=== PATIENT | female | born 1960 | race Caucasian/White ===

== ENCOUNTER 2017-08-31 08:28 | Day surgery (SDC) | payer MEDICARE ==
--- NOTE | 2017-08-30 17:20 | History and Physical Report ---
DATE: 08/30/2017. CHIEF COMPLAINT AND HISTORY OF CHIEF COMPLAINT: This is a patient with a history of an intractable lumbar radiculitis. She had a spinal cord stimulator trial on 08/08/2017 which 75 to 85 percent pain control. Due to the failure of all therapy and the success of the trial, the patient presents today for implantation of a permanent system. PAST MEDICAL HISTORY: Hypothyroidism, asthmatic bronchitis, reflux esophagitis , renal disease. PAST SURGICAL HISTORY: Not available. MEDICATIONS ON ADMISSION: To be provided. ALLERGIES: Environmental and Bactrim. SOCIAL HISTORY: Noncontributory. FAMILY HISTORY: Thyroid disease, asthma, coronary artery disease, hypertension , cancer. PHYSICAL EXAMINATION: General: Height and weight are not known. Vital Signs: Unavailable. HEENT: Within normal limits. Lungs: Clear. Heart: Regular rate and rhythm. Abdomen: Nontender. Musculoskeletal: Examination of the musculoskeletal system shows diffuse tenderness throughout the lumbar spine. Range of motion does produce pain to the low back and hip area. There is a lower extremity component across an L4 and L5 pattern into both legs. Motor and sensory field evaluation shows no specific dermatomal distribution abnormalities. Motor strength is intact. Ambulation: No assistive device utilized. Neurologic: Cranial nerves are intact. IMPRESSION: LUMBAR RADICULITIS, ICD-10 CODE M54.16 AND M54.17. PLAN: The patient is here for implantation of a permanent spinal cord stimulator due to the failure of all other therapies and the success of the trial. The procedure will be considered outpatient although an overnight stay will be evaluated. The potential risks, side effects, and complications have all been carefully reviewed and discussed including spinal cord injury, nerve root injury, dural puncture, and spinal headache. The patient understands and has consented. JOB NUMBER: [id number] cc: Dee Johnston
[~2017-08-31 08:28] MED LIST: ACETAMINOPHEN 1,000 MG/100 ML BTL IV ONE; CEFAZOLIN 2 Gram 2 GM/50 ML BAG IVPB ONE; FAMOTIDINE 20MG TABLET PO ONE; MECLIZINE 25 MG TABLET PO ONE; METOCLOPRAMIDE 10 MG TABLET PO ONE
[2017-08-31] MEDS ORDERED: CEFAZOLIN 1G VIAL IM ONE (08:29)
[2017-08-31] MEDS ORDERED: LIDOCAINE 2% MDV (20MG/ML) 20ML VIAL IV ONE (08:29)
[2017-08-31] MEDS ORDERED: LIDOCAINE 1% W/EPI 1:200,000 MPF 30ML SQ ONE (08:29)
[2017-08-31] MEDS ORDERED: BUPIVACAINE 0.5% W/EPI MPF 30 ML VIAL IVP ONE (08:29)
[2017-08-31] MEDS ORDERED: PROPOFOL 10 MG/ML VIAL IV ONE (08:29)
[2017-08-31] MEDS ORDERED: HYDROMORPHONE HCL 2 MG/ML VIAL IV ONE (08:29)
[2017-08-31] MEDS ORDERED: METOCLOPRAMIDE 10 MG TABLET PO PRN (12:45)
[2017-08-31] MEDS ORDERED: OXYCODONE/APAP 10MG-325MG TABLET PO PRN ×2 (12:45)
[2017-08-31] MEDS ORDERED: HYDROCODONE/APAP 7.5/325MG TABLET PO PRN ×2 (12:45)
[2017-08-31] MEDS ORDERED: HYDROMORPHONE HCL 1 MG/ML SYRINGE IM PRN (12:45)
[2017-08-31] MEDS ORDERED: AL HYDROX/MAG HYDROX 30ML UD PO PRN (12:45)
[2017-08-31] MEDS ORDERED: DIPHENHYDRAMINE HCL 25 MG CAPSULE PO PRN ×2 (12:45)
[2017-08-31] MEDS ORDERED: TEMAZEPAM 15 MG CAPSULE PO PRN ×2 (12:45)
[2017-08-31] MEDS ORDERED: DIPHENHYDRAMINE HCL IV 50 MG/ML VIAL IVP PRN ×2 (12:45)
[2017-08-31] MEDS ORDERED: ACETAMINOPHEN 325 MG TAB PO PRN ×2 (12:45)
[2017-08-31] MEDS ORDERED: METOCLOPRAMIDE HCL 10 MG/2 ML VIAL IVP PRN (12:45)
[2017-08-31] MEDS ORDERED: SENNOSIDES/DOCUSATE SODIUM UD CAPSULE PO PRN ×2 (12:45)
[2017-08-31] MEDS ORDERED: HYDROMORPHONE HCL 2 MG/ML VIAL IM PRN (12:45)
--- NOTE | 2017-08-31 15:39 | Operative Note - Ferro ---
DATE OF SURGERY: 08/31/17 PREOPERATIVE DIAGNOSIS: LUMBAR RADICULITIS, ICD-10 CODE = M54.16 AND M54.17. OPERATION: 1. FLUOROSCOPICALLY-GUIDED LEFT EPIDURAL ACCESS T12-L1. PLACEMENT OF SPINAL CORD STIMULATOR LEAD 1, A [employer] INFINION 16 WITH 16 ELECTRODES POSITIONED LEFT T6. 2. FLUOROSCOPICALLY-GUIDED EPIDURAL ACCESS LEFT, T11-12. PLACEMENT OF SPINAL CORD STIMULATOR LEAD 2, A [employer] INF[employer] 16 WITH 16 ELECTRODES POSITIONED RIGHT, T6. 3. COMPLEX PROGRAMMING OF LEAD 1 OVER 20 MINUTES FOLLOWED BY COMPLEX PROGRAMMING OF LEAD 2 OVER 20 MINUTES. 4. INCISION, SUBCUTANEOUS DISSECTION, AND ANCHORING LEAD 1 AND LEAD 2 TO SUPRASPINOUS FASCIA USING A [employer] LOCKING ANCHOR FOR EACH. 5. INCISION, SUBCUTANEOUS DISSECTION, AND CREATION OF A SUBCUTANEOUS POUCH AT LEFT POSTERIOR GLUTEAL MARGIN FOR PLACEMENT OF GENERATOR IDENTIFIED [employer] PROGRAMMABLE RECHARGEABLE. 6. TUNNELING BETWEEN POUCHES, PLACEMENT OF EXTERNAL PORTION OF LEAD 1 AND LEAD 2 INTO GENERATOR POUCH, EACH LEAD INTERFACED TO GENERATOR. 7. SECURING TO GENERATOR POSTERIOR FASCIA WITH NONABSORBABLE SUTURE. PLACEMENT OF LEADS INTO POUCH. CLOSURE OF BOTH INCISIONS VICRYL FOR FASCIA AND A RUNNING SUBCUTICULAR VICRYL FOR SKIN. DERMABOND CLOSURE. 8. COMPLEX RECOVERY ROOM PROGRAMMING INTERNAL GENERATOR, HOME USE, TWO STIMULATORS RECOVERY ROOM, 20 MINUTES. SURGEON: WALLACE CASTORENA D.O. ANESTHESIA: LOCAL SEDATION. ANESTHESIA PROVIDER: LARRY VINCENT CRNA. INDICATION: This patient presents with a history of intractable lumbar radiculitis. Due to the failure of all therapies and the lack of other options, a spinal cord stimulator trial was conducted with 75 to 85% pain control. Due to the failure of therapies and success of the stimulator trial, she presents today for implantation of a permanent system. PROCEDURE: Intravenous line, vital sign monitoring, IV sedation, prepped and draped in sterile technique, patient position prone. Under imaging, the epidural interspace at T12-L1 and 11-12 were identified and marked from the left. Skin infiltrated at each. Using two separate Epimed curved axis needles with [id number], the space was accessed. At 12-1, spinal cord stimulator lead 1, a [employer] Infinion 16 with 16 electrodes positioned left midline T6. Epidural access similar technique 11-12. Spinal cord stimulator lead 2, [employer] Infinion 16 with 16 electrodes positioned right at T6. During the axis, there was no difficulty. There was no CSF. No indications of nerve injury or fasciculations. With the two leads advanced, positioned left and right of the midline at T6, complex programming was then performed 20 minutes left then 20 minutes right establishing stimulation patterns to all of the appropriate areas. The patient was then questioned as to the pattern of stimulation, she indicated we had all of the areas of her primary pain. She was given to implant the system, continue to program for better options, or remove the system; she opted to implant. Questions repeated with the same response. At that point, the skin above and below both needles was infiltrated, incision made, and subcutaneous dissection was conducted to the supraspinous fascia. Each lead was then anchored to the supraspinous fascia once the needles were removed with a [employer] [place] and a nonabsorbable suture. At the left posterior gluteal margin , a site picked by the patient for the generator, skin infiltrated, incision made and subcutaneous dissection was conducted to form a pouch of suitable size and depth for the generator. Antibiotic irrigation and Bovie for hemostasis. The generator was then secured to the fascia with nonabsorbable suture. The leads were then placed in their pouch and both incisions were closed Vicryl for fascia and running subcuticular Vicryl for skin. Dermabond closure was then used to secure and approximate the edges of both wounds. She was transported to the Recovery Room stable showing no side-effects from the procedure or the sedation. When fully awake and alert, complex programming of the internal generator was then performed over 20 minutes in the Recovery Room re- establishing stimulation and pain control to all of the appropriate areas. She will be monitored for the required period of time and then prepared for discharge. DISCHARGE INSTRUCTIONS: 1. Sites to remain clean and dry. No showering or bathing for the next 24-48 hours. At that point, she can shower but not immerse the wound or incision in water. No bathing, only showering. 2. Standard medications resumed including the antibiotic, Keflex, 500 mg once four times a day, 10 days. Any problems with the antibiotic should be reported for a substitution. The office will contact the patient within the next 24-48 hours to set up an appointment in 5-7 days to evaluate the sites. Throughout this period of time, she should keep her activities low limiting bend, lift, push, pull in particular. All other instructions provided, numbers to contact, problems given. She will be discharged. cc: Dr. Perry JOB NUMBER: [id number] MTDD
[2017-08-31] MEDS ORDERED: CEFAZOLIN 2 Gram 2 GM/50 ML BAG IVPB SCH (17:15)
[2017-08-31] MEDS ORDERED: 0.9 % SODIUM CHLORIDE 10ML SYR IVP SCH (22:00)
--- NOTE | 2017-09-01 08:34 | RADIOLOGY REPORT ---
EXAM: AP PORTABLE THORACOLUMBAR SPINE HISTORY: POST SPINAL CORD STIMULATOR IMPLANT. TECHNIQUE: A single AP view of the spine was obtained including the mid to lower thoracic spine and the majority of the lumbar spine. Comparison: None. FINDINGS: There is a battery pack partially seen overlying the left lower quadrant of the abdomen with two wires seen extending from this to the left side of the spine at the L1-L2 level and then ascending up into the thoracic level to the level of the superior end plate of the body of what is presumed to be T6. Some hypertrophic spurring in the thoracic and lumbar spine probably with multilevel degenerative disk disease in the lumbar spine. IMPRESSION: BATTERY PACK PRESUMABLY REPRESENTING A SPINAL CORD STIMULATOR WITH THE ASSOCIATED WIRES EXTENDING UP TO THE LEVEL OF THE SUPERIOR END PLATE OF T6. JOB NUMBER: [id number] MTDD
== END 2017-08-31 15:20 | disposition home or self-care (01) ==
LOC: SUR 08:28 → MEDSURG 11:35 → SUR 15:20
PROVIDERS: ATTEND Pain Medicine Interventional Pain Medicine
DX: M54.16 Radiculopathy, lumbar region (principal); M54.17 Radiculopathy, lumbosacral region; I10 Essential (primary) hypertension; E03.9 Hypothyroidism, unspecified; I25.10 Atherosclerotic heart disease of native coronary artery without angina pectoris
CPT/HCPCS: 63685; 63650 ×2; 00300; 95972; 72020; J1170; J0690; C1820; C1883